=== PATIENT | male | born 1990 | race Caucasian/White ===

== ENCOUNTER 2017-01-18 21:11 | Emergency (ER) | payer OTHER, SELFPAY ==
[~2017-01-18] VITALS: Ht 180.3 cm; Wt 93.4 kg
[~2017-01-18 21:11] MED LIST: LEXA1TAB PO
[2017-01-18] MEDS ORDERED: FLUORESCEIN OPHTH 1 MG STRIP As Ordered ONE (23:09)
--- NOTE | 2017-01-18 23:10 | REPUSA ---
CT of the facial bones without contrast Clinical history: Pain, injury. Technique: Multiple axial CT images were obtained through the facial bones and paranasal sinuses util izing 3 mm axial slices without administration of contrast. Coronal and sagittal reconstructions were also obtained. Findings: The visualized paranasal sinuses are clear, other than scattered subcentimeter mucus retent ion cysts/polyps in the maxillary sinuses bilaterally. The osteomeatal complexes are patent bilateral ly. The nasal septum is midline. The visualized mastoid air cells are clear. There are acute nondispl aced fractures of the nasal bones bilaterally. The superficial soft tissues are within normal limits. Impression: 1. Acute nondisplaced bilateral nasal bone fractures. 2. Suspected bilateral polyposis of the maxillary sinuses.
[2017-01-18] MEDS ORDERED: TETRACAINE 0.5% OPHTH SOLN 4ML OD ONE (23:15)
[2017-01-18] MEDS ORDERED: FLUORESCEIN OPHTH 1 MG STRIP OD ONE (23:15)
[2017-01-18 23:32] VITALS: BP 127/65
== END 2017-01-18 23:35 | disposition home or self-care (01) ==
LOC: M ED 21:11
DX: S02.2XXA Fracture of nasal bones, initial encounter for closed fracture (principal); S05.10XA Contusion of eyeball and orbital tissues, unspecified eye, initial encounter; W50.0XXA Accidental hit or strike by another person, initial encounter; Y92.9 Unspecified place or not applicable; Y93.67 Activity, basketball; Y99.9 Unspecified external cause status

== ENCOUNTER 2018-02-04 10:48 | Emergency (ER) | payer SELFPAY | END 2018-02-04 12:34 | disposition home or self-care (01) | LOC: M ED 10:48 | DX: B08.4 Enteroviral vesicular stomatitis with exanthem (principal); B97.11 Coxsackievirus as the cause of diseases classified elsewhere | CPT/HCPCS: 99283 ==

== ENCOUNTER 2019-03-25 08:12 | Emergency (ER) | payer MEDICARE, SELFPAY ==
[~2019-03-25] VITALS: Ht 180.3 cm; Wt 90.9 kg
[~2019-03-25 08:12] MED LIST changes: +MAGICMW MT
--- NOTE | 2019-03-25 14:32 | REP ---
CT of the maxillofacial bones without contrast Indication: Trauma, left base/orbit. Comparison: CT of the maxillofacial bones 01/18/2017. Technique: Axial CT of the maxillofacial bones was performed. No intravenous contrast was administered. Axial, coronal and sagittal bone reformatted images were provided. Findings: There is a fracture through the left infraorbital foramen which is nondisplaced. The remaining yost of the left orbit are intact. There is no evidence of informed hematoma. The right orbit is intact. The zygomas are intact. There is a comminuted fracture of the anterior and lateral yost of the left maxillary sinus. There is overlying soft tissue swelling and subcutaneous soft tissue edema. The left maxillary sinus and pterygoid plates are intact. There is chronic fracture deformity of the nasal bones with leftward deviation. There is leftward deviation of the anterior nasal septum. There is mild mucosal thickening of the left maxillary sinus and bilateral ethmoid air cells. Remaining paranasal sinuses since and mastoid air cells are clear. There is a periapical lucency involving the left maxillary central and lateral incisors, similar to prior. There are scattered dental caries. The mandible is intact. The imaged portion of the brain parenchyma is unremarkable. Impression: Nondisplaced left orbital floor fracture involving the infraorbital foramen. Left orbital contents intact. Comminuted fracture of the anterior lateral yost of the left maxillary sinus. Chronic fracture deformity of the nasal bones. Similar periapical lucency involving the left maxillary central and lateral incisors. Electronically Signed by Дмитрий Schwartz MD 03/25/2019 02:23 P
[2019-03-25] MEDS ORDERED: AUGM875T28 PO (14:47)
[2019-03-25] MEDS ORDERED: PSEU30TA88 PO (14:47)
[2019-03-25 14:56] VITALS: BP 119/59
== END 2019-03-25 15:03 | disposition home or self-care (01) ==
LOC: M ED 08:12
DX: S02.32XA Fracture of orbital floor, left side, initial encounter for closed fracture (principal); S02.40DA Maxillary fracture, left side, initial encounter for closed fracture; S02.2XXA Fracture of nasal bones, initial encounter for closed fracture; W55.82XA Struck by other mammals, initial encounter; Y92.89 Other specified places as the place of occurrence of the external cause; F33.9 Major depressive disorder, recurrent, unspecified; F41.9 Anxiety disorder, unspecified; F43.10 Post-traumatic stress disorder, unspecified; F90.9 Attention-deficit hyperactivity disorder, unspecified type

== ENCOUNTER → 2019-04-10 | Outpatient (REF) | payer MEDICARE ==
[~2019-04-10] MED LIST changes: +AUGM875T28 PO; +PSEU30TA88 PO
[2019-04-10 15:49] LABS: BASO % 0.6 % (0.0-1.0); EOS # 0.1 10^3/uL (0.0-0.5); EOS % 1.7 % (0.0-3.0); HEMATOCRIT 43.8 % (42.0-52.0); HEMOGLOBIN 14.7 g/dl (13.5-17.5); LYMPH # 1.6 10^3/uL (1.5-5.0); LYMPH % 31.1 % (24.0-44.0); MEAN CORPUSCULAR HEMOGLOBIN 29.4 pg (27.0-33.0); MEAN CORPUSCULAR HGB CONC 33.6 g/dl (32.0-36.5); MEAN CORPUSCULAR VOLUME 87.6 fl (80.0-96.0); MONO # 0.5 10^3/uL (0.0-0.8); MONO % 8.7 % (0.0-5.0); NEUTROPHILS % 57.7 % (36.0-66.0); PLATELET COUNT, AUTOMATED 192 10^3/uL (150-450); WHITE BLOOD COUNT 5.2 10^3/uL (4.0-10.0)
[2019-04-10 16:15] LABS: ALBUMIN 4.3 GM/DL (3.2-5.2); ALT/SGPT 32 U/L (12-78); BILIRUBIN,TOTAL 0.5 MG/DL (0.2-1.0); BLOOD UREA NITROGEN 12 MG/DL (7-18); CALCIUM LEVEL 9.1 MG/DL (8.5-10.1); CARBON DIOXIDE LEVEL 30 MEQ/L (21-32); CHLORIDE LEVEL 106 MEQ/L (98-107); CREATININE FOR GFR 1.02 MG/DL (0.70-1.30); GLOMERULAR FILTRATION RATE > 60.0 (>60); GLUCOSE, FASTING 72 MG/DL (70-100); SODIUM LEVEL 141 MEQ/L (136-145); TOTAL PROTEIN 7.7 GM/DL (6.4-8.2)
[2019-04-14 00:14] LABS: Lyme Disease IgG/IgM Antibodie <0.91 ISR (0.00-0.90); Lyme Disease IgM Ab Quantitati <0.80 index (0.00-0.79)
== END ==
LOC: M LAB REF 15:21
PROVIDERS: ATTEND Physician Assistant
DX: R61 Generalized hyperhidrosis (principal); R53.83 Other fatigue

== ENCOUNTER → 2019-07-22 | Outpatient (REF) | payer MEDICARE ==
[2019-07-22 15:18] LABS: INFLUENZA A AMPLIFICATION NEGATIVE (NEGATIVE); INFLUENZA B AMPLIFICATION NEGATIVE (NEGATIVE)
== END ==
LOC: M LAB REF 14:16
PROVIDERS: ATTEND Physician Assistant
DX: J11.1 Influenza due to unidentified influenza virus with other respiratory manifestations (principal)